=== PATIENT | female | born 1935 | race Caucasian/White ===

== ENCOUNTER → 2021-12-18 | Outpatient (CLI) | payer MEDICARE ==
[~2021-12-18] MED LIST: MACROBID 100 M100 MG PO; MIRALAX17 GM PO; NAPROXEN 250 M250 MG PO; NORCO 5-325 TA1 EACH PO; PYRIDIUM200 MG PO; RESTORIL30 MG PO; SYNTHROID125 MCG PO
== END ==
LOC: HEART 5 09:45
DX: R00.2 Palpitations (principal); I10 Essential (primary) hypertension; I08.3 Combined rheumatic disorders of mitral, aortic and tricuspid valves
CPT/HCPCS: 93306